=== PATIENT | male | born 1970 | race Caucasian/White ===

== ENCOUNTER → 2021-05-24 | Outpatient (CLI) | payer OTHER ==
[2021-05-24 23:44] LABS: PROCALCITONIN <0.05 ng/mL (0.00-0.09)
[2021-05-25 19:18] LABS: C-ANCA 10 U/mL (0-99)
[2021-05-26 16:09] LABS: ANGIOTENSIN CONVERTING ENZYME 27 U/L (16 - 85)
== END ==
LOC: COL.LAB 13:11
PROVIDERS: Internal Medicine Pulmonary Disease
DX: J84.9 Interstitial pulmonary disease, unspecified (principal)